=== PATIENT | male | born 1970 | race Caucasian/White ===

== ENCOUNTER 2018-10-27 11:12 | Emergency (ER) | payer MEDICARE, OTHER ==
[~2018-10-27] VITALS: Ht 182.9 cm; Wt 90.7 kg
[2018-10-27 11:45] LABS: BASOPHILS ABSOLUTE AUTO 0.07 K/mm3 (0.00-0.23); BASOPHILS PERCENT AUTO 1 % (0-2); EOSINOPHILS PERCENT AUTO 4 % (0-6); IMMATURE GRAN PERCENT AUTO 0 % (0-1); LYMPHOCYTES ABSOLUTE AUTO 1.92 K/mm3 (0.84-5.20); LYMPHOCYTES PERCENT AUTO 35 % (21-46); MONOCYTES ABSOLUTE AUTO 0.46 K/mm3 (0.16-1.47); MONOCYTES PERCENT AUTO 8 % (4-13); Mean Corpuscular HGB 31.4 pg (26.0-34.0); Mean Corpuscular HGB Conc 30.3 g/dL (31.5-36.5); Mean Corpuscular Volume 104 fL (80-100); Mean Platelet Volume 9.9 fL (9.1-12.4); NEUTROPHILS ABSOLUTE AUTO 2.86 K/mm3 (1.96-9.15); NEUTROPHILS PERCENT AUTO 52 % (41-73); Platelet Count 228 K/mm3 (150-400); RDW Coefficient Variation 13.6 % (11.7-14.2); Red Blood Cell Count 3.18 M/mm3 (4.30-5.90); White Blood Cell Count 5.51 K/mm3 (4.00-11.30)
[2018-10-27 12:17] LABS: Alanine Aminotransfer (ALT/SGP 22 U/L (12-78); Albumin, Blood 3.8 g/dL (3.4-5.0); Albumin/Globulin Ratio 1.1 (0.8-1.8); Alk Phos 80 U/L (50-136); Anion Gap 7 mmol/L (6-16); Aspartate Aminotrans (AST/SGOT 19 U/L (12-37); Bilirubin, Total 0.7 mg/dL (0.1-1.0); Blood Urea Nitrogen 20 mg/dL (8-24); Bun/Creatinine Ratio 13.2 (12.0-20.0); CO2, Blood 22 mmol/L (21-32); Calcium, Blood 8.8 mg/dL (8.5-10.1); Chloride, Blood 107 mmol/L (98-108); Creatinine, Blood 1.51 mg/dL (0.60-1.20); Globulin, Blood 3.6 g/dL (2.2-4.0); Glomerular Filtration Rate 52 (60-); Glucose, Blood 91 mg/dL (70-99); Potassium, Blood 4.5 mmol/L (3.5-5.5); Sodium, Blood 136 mmol/L (136-145); Total Protein, Blood 7.4 g/dL (6.4-8.2); Troponin I <0.015 ng/mL (0.000-0.040)
[2018-10-27] MEDS ORDERED: THIA100I PO (12:17)
[2018-10-27] MEDS ORDERED: HYDCHL25 PO (12:17)
[2018-10-27] MEDS ORDERED: GABA600 PO (12:18)
[2018-10-27] MEDS ORDERED: CYCL10 PO (12:18)
[2018-10-27] MEDS ORDERED: LISI5 PO (12:18)
[2018-10-27] MEDS ORDERED: CLON.2 PO (12:18)
== END 2018-10-27 14:21 | disposition home or self-care (01) ==
LOC: ER 11:12
PROVIDERS: Physician Assistant
DX: I12.9 Hypertensive chronic kidney disease with stage 1 through stage 4 chronic kidney disease, or unspecified chronic kidney disease (principal); N18.9 Chronic kidney disease, unspecified; R51 Headache; Z79.899 Other long term (current) drug therapy
CPT/HCPCS: 71046; 80053; 84484; 85025; 93005; 93010; 99284-25

== ENCOUNTER 2019-10-09 08:41 | Emergency (ER) | payer MEDICARE, OTHER ==
[~2019-10-09] VITALS: Ht 182.9 cm; Wt 83.9 kg
[~2019-10-09 08:41] MED LIST: ACETAMINOPHEN500 MG PO; CLON.2 PO; CYCL10 PO; GABA600 PO; HYDCHL25 PO; HYDHCL25 PO; LISI20 PO; LISI5 PO; METPRE4DP PO; Norco 5-325 Ta1 EACH PO; THIA100I PO
[2019-10-09] MEDS ORDERED: IBUP800 PO (10:25)
[2019-10-09] MEDS ORDERED: Norco 10-325 T1 EACH PO (10:25)
== END 2019-10-09 11:11 | disposition home or self-care (01) ==
LOC: ER 08:41
DX: S42.211A Unspecified displaced fracture of surgical neck of right humerus, initial encounter for closed fracture (principal); S42.201A Unspecified fracture of upper end of right humerus, initial encounter for closed fracture; S00.33XA Contusion of nose, initial encounter; S00.12XA Contusion of left eyelid and periocular area, initial encounter; S00.11XA Contusion of right eyelid and periocular area, initial encounter; I10 Essential (primary) hypertension; Z79.899 Other long term (current) drug therapy
CPT/HCPCS: 29105; 70160; 73030; 96374-59; 96375-59; 99284-25; J1885; J2405; J3010

== ENCOUNTER → 2020-01-18 | Outpatient (CLI) | payer MEDICARE, OTHER ==
[~2020-01-18] MED LIST changes: +IBUP800 PO; +Norco 10-325 T1 EACH PO
[2020-01-18 11:59] LABS: PSA, %Free 9.1 %; PSA, Free 0.227 ng/mL
== END | disposition home or self-care (01) ==
LOC: LAB EV 08:45 → LAB SHORT 08:45
PROVIDERS: Physician Assistant Medical
DX: R35.1 Nocturia (principal)
CPT/HCPCS: 84153; 84154

== ENCOUNTER 2020-06-01 12:10 | Inpatient (IN) | payer MEDICARE, OTHER ==
[~2020-06-01] VITALS: Ht 182.9 cm; Wt 70.6 kg
[2020-06-01 12:41] LABS: BASOPHILS ABSOLUTE AUTO 0.09 K/mm3 (0.00-0.23); BASOPHILS PERCENT AUTO 1 % (0-2); EOSINOPHILS ABSOLUTE AUTO 0.12 K/mm3 (0.00-0.68); EOSINOPHILS PERCENT AUTO 1 % (0-6); Hematocrit 40.1 % (37.0-53.0); Hemoglobin 12.9 g/dL (13.5-17.5); IMMATURE GRAN ABSOLUTE AUTO 0.02 K/mm3 (0.00-0.10); IMMATURE GRAN PERCENT AUTO 0 % (0-1); LYMPHOCYTES ABSOLUTE AUTO 1.34 K/mm3 (0.84-5.20); LYMPHOCYTES PERCENT AUTO 16 % (21-46); MONOCYTES ABSOLUTE AUTO 0.56 K/mm3 (0.16-1.47); MONOCYTES PERCENT AUTO 7 % (4-13); Mean Corpuscular HGB 31.2 pg (26.0-34.0); Mean Corpuscular HGB Conc 32.2 g/dL (31.5-36.5); Mean Corpuscular Volume 97 fL (80-100); Mean Platelet Volume 10.4 fL (9.1-12.4); NEUTROPHILS ABSOLUTE AUTO 6.25 K/mm3 (1.96-9.15); NEUTROPHILS PERCENT AUTO 75 % (41-73); Platelet Count 303 K/mm3 (150-400); RDW Coefficient Variation 12.4 % (11.7-14.2); RDW Standard Deviation 44.5 fL (35.1-46.3); Red Blood Cell Count 4.14 M/mm3 (4.30-5.90); White Blood Cell Count 8.38 K/mm3 (4.00-11.30)
[2020-06-01 13:00] LABS: Calcium, Ionized (POC) 1.14 mmol/L (1.10-1.46); Chloride (POC) 102 mmol/L (98-108); Creatinine (POC) 1.5 mg/dL (0.8-1.3); Glucose (ISTAT POC) 90 mg/dL (70-99); Hemoglobin (POC) 12.9 g/dL (13.5-17.5); Sodium (POC) 139 mmol/L (135-148); Total CO2 (POC) 23 mmol/L (21-32)
[2020-06-01 13:00] LABS: Alanine Aminotransfer (ALT/SGP 32 U/L (12-78); Albumin, Blood 3.8 g/dL (3.4-5.0); Albumin/Globulin Ratio 1.2 (0.8-1.8); Alk Phos 85 U/L (50-136); Anion Gap 7 mmol/L (6-16); Aspartate Aminotrans (AST/SGOT 28 U/L (12-37); Bilirubin, Total 0.6 mg/dL (0.1-1.0); Blood Urea Nitrogen 13 mg/dL (8-24); CO2, Blood 24 mmol/L (21-32); Calcium, Blood 8.9 mg/dL (8.5-10.1); Chloride, Blood 107 mmol/L (98-108); Creatinine, Blood 1.18 mg/dL (0.60-1.20); Ethanol (Alcohol), Blood, Med 118 mg/dL; Globulin, Blood 3.3 g/dL (2.2-4.0); Glomerular Filtration Rate >60 (60-); Glucose, Blood 91 mg/dL (70-99); Potassium, Blood 4.3 mmol/L (3.5-5.5); Sodium, Blood 138 mmol/L (136-145); Total Protein, Blood 7.1 g/dL (6.4-8.2)
[2020-06-01 13:16] LABS: International Normalized Ratio 0.94; Prothrombin Time Results 10.1 Sec (9.7-11.5)
--- NOTE | 2020-06-01 16:08 | NUR ---
ADMISSION: REPORT RECEIVED FROM ED RN. PT TO ROOM AT ABOUT 1505. UPON ASSESSMENT PT IS A/O, C/O PAIN AT BACK AND R SIDE OF CHEST. REPORT PAINFUL TO TALK/BREATHE. VSS, PT SPO2 98% ON RA, PT SPLINTING R SIDE OF CHEST AND BREATHING IS SHALLOW, RR WNL. UPON FUTHER ASSESSMENT THERE IS A PUCTURE SITE AT PT R BACK. WHEN PT BREATHES OR SPEAKS THE AREA SOURROUNDING THE PUNCTURE SITE BULDGES. THERE IS CREPTIUS AT PT'S R LATERAL, POSTERIOR, AND ANTERIOR RIBS. ALINING INSPECTOR LIZANDRO CALLED INTO ROOM TO ASSESS PT AT THIS TIME. DR. YAO MADE AWARE OF MY ASSESSMENT OF PT'S CHEST ASWELL DR. VALENCIA. DR. YAO IN ROOM AT ABOUT 1520 TO ASSESS PT STATUS. STAT CHEST XRAY ORDERED BY DR. VALENCIA. PT IS STABLE AT THIS TIME. CONTINUIOUS BI OX IN PLACE. CHEST X RAY TO BE TAKEN NOW. REPORT PASSED TO JOSE BONE.
--- NOTE | 2020-06-01 16:10 | NUR ---
assumed pt care called imaging re eta of cxr
--- NOTE | 2020-06-01 16:42 | NUR ---
NS BOLUS INFUSING AND THEN LR TO GO AT 150ML
--- NOTE | 2020-06-01 19:00 | NUR ---
PT OOB AMB TOWARDS PCU STATED HE CANNOT BREATH AND WAS GOING TO THE ER "my lung is filling up" TALKED WITH PT RE ALETHEA AND HOW IT MAY FEEL PT RETURNED TO HIS ROOM VIA WC PT PLACED ON 2 L NC AND NOTIFIED DR VALENCIA OF PT'S INC SOB SYMPTOMS EARLIER DR VALENCIA OUT TO SEE PT AND REPEAT XRAY DONE
--- NOTE | 2020-06-01 19:22 | NUR ---
CHEST TUBE PROCEDURE PT ARRIVED TO ICU 1 FOR CHEST TUBE INSERTION AND PROCEDURAL SEDATION. DR. VALENCIA AT BEDSIDE. PT IS ON 3L NC. MONITOR SHOWS NSR, RATE 80s. BP STABLE. VERSED 4MG IV TOTAL AND FENTANYL 125MCG IV TOTAL GIVEN FOR PROCEDURAL SEDATION. PT TOLERATED PROCEDURE WELL. LEFT LATERAL CHEST TUBE PLACED- TO WATER SEAL AT THIS TIME WITH SMALL AIR LEAK NOTED. CHEST XRAY DONE PER ORDER.
--- NOTE | 2020-06-01 21:02 | NUR ---
TRANSFER TRANSFERRED BACK TO SURGICAL FLOOR AT THIS TIME. O2 AT 3L NC. PT ROUSES EASILY AND IS TOLERATING ICE CHIPS. FREQUENTLY ASKS FOR FOOD. VSS. LEFT CHEST TUBE TO WATER SEAL AND IS TO BE PLACED TO 20CM SUCTION ONCE IN ROOM. JOSE PA IS AWARE.
--- NOTE | 2020-06-01 21:06 | NUR ---
PT BACK TO ROOM POST CT PLACEMENT. DROWSEY UPON RETURN. 3L VIA NC. LUNG SOUNDS DIMINISHED T/O. CONT PULSE OXIMETRY IN PLACE. CREPITUS NOTED MEDIAL + LATERAL TO CT PLACEMENT. BED ALARM ON FOR SAFETY. CALL LIGHT WITHIN REACH.
[2020-06-02 00:17] LABS: U Amphetamine Screen Not Detected; U Barbituate Screen Not Detected; U Benzodiazapine Screen Not Detected; U Buprenorphine Screen Not Detected; U Cannabinoids Screen DETECTED; U Cocaine Screen Not Detected; U Methadone Screen Not Detected; U Methamphetamine Screen Not Detected; U Opiates Screen Not Detected; U Oxycodone Screen Not Detected; U Phencyclidine Screen Not Detected; U Propoxyphene Screen Not Detected
[2020-06-02 03:03] LABS: Source, Urine Clean Catch
[2020-06-02 03:07] LABS: Bilirubin, Urine Neg (Neg); Blood, Urine 1+ (Neg); Glucose Qualitative, Urine 1+ (Neg); Ketones, Urine 2+ (Neg); Leukocyte Esterase, Urine Neg (Neg); Nitrite, Urine Neg (Neg); Protein, Urine 1+ (Neg); Specific Gravity, Urine 1.015 (1.003-1.022); Urobilinogen, Urine NORM (Normal)
[2020-06-02 03:12] LABS: Appearance, Urine Clear (Clear); Color, Urine Yellow (P-Yellow)
[2020-06-02 03:13] LABS: Bacteria Few /hpf; Red Blood Cells, Urine 0-2 /hpf (0-2); Spermatozoa Few /hpf; Squamous Epithelial Cells Not Seen /hpf (Few); White Blood Cells, Urine 0-2 /hpf (0-5)
--- NOTE | 2020-06-02 03:57 | NUR ---
SHIFT SUMMARY PT RESTING WELL THIS AM. AAOX4/ANXIOUS AT TIMES. DISCOMFORT AT TOLERABLE LEVEL SINCE BACK TO FLOOR POST CHEST TUBE PLACEMENT TO LEFT LATERAL CHEST. CREPITUS PERSISTS BOTH MEDIAL AND POSTERIOR OF CHEST TUBE, DECREASED FROM PREVIOUS SHIFT ASSESSMENT. LUNG SOUNDS DIMINISHED T/O. CHEST TUBE TO WALL SUCTION WITH MINIMAL DRAINAGE. 2L VIA NC. PT WITH GOOD APPETITE UPON ARIVAL BACK TO UNIT. CONT PULSE OXIMETRY IN PLACE. PT REQUESTING TO NOT BE DISTURBED THIS AM, WILL CONSOLIDATE CARE TO IMPROVE PT'S REST. PT CURRENTLY RESTING IN BED, CONT PULSE OXIMETRY IN PLACE + CALL LIGHT WITHIN REACH.
[2020-06-02 06:55] LABS: Hematocrit 38.5 % (37.0-53.0); Hemoglobin 12.4 g/dL (13.5-17.5); Mean Corpuscular HGB 31.2 pg (26.0-34.0); Mean Corpuscular HGB Conc 32.2 g/dL (31.5-36.5); Mean Corpuscular Volume 97 fL (80-100); Platelet Count 281 K/mm3 (150-400); RDW Coefficient Variation 12.8 % (11.7-14.2); RDW Standard Deviation 45.8 fL (35.1-46.3); Red Blood Cell Count 3.97 M/mm3 (4.30-5.90); White Blood Cell Count 8.02 K/mm3 (4.00-11.30)
[2020-06-02 07:14] LABS: Anion Gap 5 mmol/L (6-16); Blood Urea Nitrogen 20 mg/dL (8-24); Bun/Creatinine Ratio 21.1 (12.0-20.0); CO2, Blood 26 mmol/L (21-32); Calcium, Blood 8.4 mg/dL (8.5-10.1); Chloride, Blood 111 mmol/L (98-108); Creatinine, Blood 0.95 mg/dL (0.60-1.20); Glomerular Filtration Rate >60 (60-); Glucose, Blood 145 mg/dL (70-99); Sodium, Blood 142 mmol/L (136-145)
--- NOTE | 2020-06-02 07:50 | NUR ---
AT APROX 0700 THIS RN ENTERED PT ROOM PER PT REQUEST. PT AGGITATED, WANTS STAFF TO GO TO "[employer] AND BUY OYSTERS AND PROTEIN SHAKES" SO THAT HE CAN HEAL. RN OFFERED TO CALL MD FOR OMEGA 3 SUPPLEMENT AND PROTEIN SHAKES FROM DIETARY. PT INCREASED AGGITATION AND CUSSING-STATES THAT IS NOT GOOD ENOUGH. DEMANDS AGAIN THAT STAFF GO AND BUY HIM WHAT HE WANTS. EXPLAINED THAT STAFF IS UNABLE TO GO TO STORE AND MAKE PURCHASES FOR HIM. PT PUSHED TABLE AT THIS RN, ATTEMPTED TO GET OOB WITH CHEST TUBE TO SUCTION. 2ND RN IN ROOM. DR VALENCIA NOTIFIED, ORDERS FOR CIWAS Q4 AND ATIVAN AND LIBRIUM.
--- NOTE | 2020-06-02 08:13 | NUR ---
MORNING ASSESSMENT PT ANGRY, IRRITABLE, THROWING OBJECTS AT STAFF (TELE BOX), AND BEING VERBALLY ABUSIVE. SECURITY CALLED TO STANDBY WHILE NURSING STAFF PERFORMED A.M. ASSESSMENT AND MEDICATIONS. CHARGE NURSE ADMINISTERED IV ATIVAN PER [facility] PROTOCOL AND THIS RN ATTEMPTED TO GIVE PT LIBRIUM, BUT PT REFUSED. DR. YAO AWARE. NURSING STAFF CONTINUING TO OFFER SNACKS AND PROVIDING SUPPORT PRN. CHEST TUBE INTACT TO WALL SUCTION. CONT BIOX IN PLACE AND PT SATTING AT 95% ON ROOM AIR. IVF INFUSING PER ORDERS. PT USED THE URINAL. CALL LIGHT WITHIN REACH.
--- NOTE | 2020-06-02 08:58 | NUR ---
PT APPEARS TO BE SLEEPING AT THIS TIME. RESPIRATIONS EVEN AND UNLABORED. CONT BIOX IN PLACE AND O2 SATS STABLE ON ROOM AIR. BREAKFAST TRAY COLLECTED. TELE BOX RETURNED TO NATURAL SCIENCES MANAGER. CALL LIGHT WITHIN REACH. CHEST TUBE INTACT.
--- NOTE | 2020-06-02 10:10 | NUR ---
AT 1000 PT WAS TRANSFERED FROM SURGICAL FLOOR TO ICU 2. PT IS IN 4 POINT TAT RESTRAINTS. PT IS YELLING AND CUSSING AT STAFF. WAS AGGRESSIVE WITH SECURITY AND STAFF ON SURGICAL FLOOR. 4 MG OF IV ATIVAN GIVEN AND PRECEDEX ON THE WAY FROM PHARMACY. HAD TO LEAVE PT IN SURGICAL BED DUE TO RISK OF INJURY TO STAFF WHILE TRANSFERING. PT HAS CHEST TUBE TO L ANTERIOR CHEST CONNECTED TO PLEURAVAC. PT IS NOT SOB OR DYSPNEIC. WILL ALLOW PT TO CALM DOWN BEFORE THOROUGHLY ASSESSING. AFTER ATIVAN PT IS CALMING DOWN.
--- NOTE | 2020-06-02 10:13 | NUR ---
YANETH AGUILAR CALLED INTO PT ROOM AFTER YANETH AGUILAR ANNOUNCED. SECURITY, NURSING HYDRAULIC BOOM OPERATOR, AND NURSING STAFF PRESENT IN ROOM AND RESTRAINING PT DOWN. STRONG CUFFS APPLIED TO ALL EXTREMITIES PT WAS BECOMING PHYSICALLY ABUSIVE TO STAFF AND A HARM TO HIMSELF PT WAS PULLING AT CHEST TUBE AND IV LINE. CLICKER OPERATOR ADMINISTERED IV ATIVAN PER ORDERS. THIS RN NOTIFIED DR. YAO AND TELEPHONE ORDER TO TRANSFER TO ICU AND START PRECEDEX WAS ORDERED. PT TRANSFERRED TO ICU AND THIS RN GAVE REPORT TO ICU NURSE.
--- NOTE | 2020-06-02 12:00 | NUR ---
PT SEDATED WITH PRECEDEX. WILL AROUSE TO VOICE BUT DOES NOT OPEN EYE'S AND GOES BACK TO SLEEP. UNABLE TO DO CIWA SCORE NOW THAT PT IS SEDATED. PT IS POORLY KEPT AND STATED EARLIER THAT HE IS HOMELESS. PT HAS CHEST TUBE TO L ANTERIOR CHEST. HAS CREPITUS FROM SITE UP TO NECK AROUND JUGULAR. SOME CREPITUS TO TOP OF SHOULDER AND DOWN TO L OF STERNUM. CHEST TUBE TO PLEURAVAC TO SUCTION. NO SIGN OF DISTRESS.
--- NOTE | 2020-06-02 18:29 | NUR ---
SUMMARY PT IS RESTING ON PRECEDEX NOW. HAVE GIVEN ATIVAN PRN FOR AGITATION. UNABLE TO GET CIWA SCORE DUE TO SEDATION. PT WOKE UP TONIGHT RN WAS ADJUSTING RESTRAINT AND DID TRY TO BITE RN. PT HAS GARBLED SPEECH AND CONVERSATION DOES NOT MAKE SENSE. CHEST TUBE TO L ANTERIOR CHEST PUTTING OUT SMALL AMT OF RED FLUID IN PLEURAVAC. PT DENIED DYSPNEA OR SOB. SPO2 GREATER THAN 90% ON RA ALL DAY. HAS CREPITUS TO L CHEST UP TO NECK JUST BELOW EAR, AND TO MID RIBS/FLANK AREA. ONLY PEA SIZED ABRAISION TO L BACK WHERE PT WAS HIT WITH SOFY DIXON PRIOR TO ADMIT. REMAINS IN TAT X4 DUE TO UNPREDICTABILITY. NO SIGN OF DISTRESS.
--- NOTE | 2020-06-02 20:00 | NUR ---
PRECEDEX INFUSING. SEE FLOW SHEET FOR TITRATION AND RATES. UNABLE TO COMPLETE CIWA ASSESSMENT DUE TO SEDATION.
--- NOTE | 2020-06-02 20:40 | NUR ---
ASSUMED CARE AT 1900 PT SLEEPING IN BED. PT AROUSES TO VERBAL STIMULI. SPEECH IS GARBLED, UNABLE TO UNDERSTAND PT. NOT FOLLOWING DIRECTIONS. PT IS ON RA WITH O2 >95%. MONITOR SHOWS SR, HR 55-60'S. PT HYPERTENSIVE, WILL CONTINUE TO MONITOR. PRN MEDICATIONS AVAILABLE FOR PAIN AND HTN. CHEST TUBE IN PLACE TO LT ANTERIOR CHEST. DRAINING TO PLEURVAC TO WALL SUCTION. CEPITOS PRESENT T/O LT CHEST UP TO LT SIDE OF NECK CLOSE TO EAR, ALSO WRAPING AROUND TO LT POSTERIOR COSTAL AREA. NO AIR LEAK NOTED IN PLEURVAC. ATTEMPTED ORAL CARE, PT BIT DOWN ON SWAB AND WOULD NOT LET GO. WAS ABLE TO REMOVE SWAB AND STILL IN TACT. PLAQUE NOTED ON TEETH, UNABLE TO ASSESS ORAL CAVITY AT THIS TIME. PT PASSING GAS. INCONTINENT OF URINE. PT VERY AGITATED WITH NURSING CARE. PLAN TO ATTEMPT CONDOM CATH THIS SHIFT. PT FISHMAN. OCCASIONALLY ATTEMPTS SITTING UP IN BED. PT BEGAN SITTING UP IN BED AND SOUNDED LIKE HE WAS YELLING OUT "PAIN". ATTEMPTED TO FURTHER ASSESS PAIN, PT BEGAN CURSING AT THIS RN AND NOT COOPERATIVE WITH ASSESSMENT. PT MEDICATED WITH FENTYNAL. CURRENTLY RESTING COMFORTABLY.
--- NOTE | 2020-06-03 00:55 | NUR ---
AGITATION PT WAS YELLING OUT FROM ROOM REQUESTING WATER. ATTEMPTED TO ASSIST PT WITH A SIP OF WATER. PT TOOK CUP OF WATER AND THREW IT ON THE FLOOR AND THEN STARTED CURSING AT STAFF AND THRASHING AROUND IN BED. PRN ATIVAN PROVIDED. PT NOW RESTING QUIETLY IN BED.
--- NOTE | 2020-06-03 02:42 | NUR ---
AGITATION PT YELLING OUT FROM ROOM. TELL THIS RN THAT HE "LEFT A BAG OF WEED IN THIS BED" AND IS TRYING TO FIND IT. ASSURED PT THE ROOM WAS CHECKED EARLIER AND THAT A "BAG OF WEED" WAS NOT FOUND. PT THEN YELLS "THEN WHAT THE FUCK ARE YOU DOING HERE! GET OUT!" BILATERAL WRIST RESTRAINTS REMAIN IN PLACE.
[2020-06-03 03:32] LABS: Hemoglobin 13.1 g/dL (13.5-17.5); Mean Corpuscular HGB Conc 32.8 g/dL (31.5-36.5); Mean Corpuscular Volume 95 fL (80-100); Mean Platelet Volume 10.7 fL (9.1-12.4); Platelet Count 261 K/mm3 (150-400); RDW Coefficient Variation 12.2 % (11.7-14.2); RDW Standard Deviation 42.9 fL (35.1-46.3); Red Blood Cell Count 4.23 M/mm3 (4.30-5.90); White Blood Cell Count 8.49 K/mm3 (4.00-11.30)
[2020-06-03 03:57] LABS: Anion Gap 4 mmol/L (6-16); Blood Urea Nitrogen 14 mg/dL (8-24); Bun/Creatinine Ratio 16.2 (12.0-20.0); CO2, Blood 27 mmol/L (21-32); Calcium, Blood 8.7 mg/dL (8.5-10.1); Chloride, Blood 109 mmol/L (98-108); Creatinine, Blood 0.87 mg/dL (0.60-1.20); Glomerular Filtration Rate >60 (60-); Glucose, Blood 125 mg/dL (70-99); Magnesium, Blood 1.9 mg/dL (1.6-2.4); Potassium, Blood 3.9 mmol/L (3.5-5.5); Sodium, Blood 140 mmol/L (136-145)
--- NOTE | 2020-06-03 06:05 | NUR ---
AGITATION PT SITING UP WITH LEGS HANGING OFF BED AND YELLING OUT IN ROOM. PT CURSING AT RN'S AND CALLING NAMES. PT NOT REDIRECTABLE. ATTEMPTED TO ASSESS FOR NEEDS BUT PT CONTINUED TO CURSE AT STAFF. PRN ATIVAN GIVEN. PRECEDEX INCREASED.
--- NOTE | 2020-06-03 06:14 | NUR ---
END OF SHIFT SUMMARY PT LABILE MOOD T/O SHIFT. RESTS T/O NIGHT AND BECOMES INCREASING AGITATED WHILE AWAKE. SEE PREVIOUS NOTES. SPEECH IS CLEARER THAN BEGINING OF SHIFT. STILL GARBLED AND SLURED BUT UNDERSTANDABLE. CHEST TUBE IN PLACE AND ON SUCTION. NO LEAKS PRESENT AND ABOUT 50ML OF DRAINAGE THIS SHIFT. RA O2 SATS >94%. PT IN NSR WITH HR 60-90'S. SBP 152-182. PT IS ABLE TO PASS GAS. CONDOM CATH CONTINUE TO BE IN PLACE. PRECEDEX INFUSING. SEE FLOW SHEET. WILL REPORT TO AM RN WHEN AVAILABLE.
--- NOTE | 2020-06-03 10:01 | NUR ---
PT SEDATED WITH PRECEDEX AT 1.4 MCG/KG/MIN. PT WILL STILL WAKE UP AND START YELLING, PULLING AGAINST RESTRAINTS, AND WILL PULL ANY LINE THAT HE CAN GET TO. DOES NOT ANSWER QUESTIONS. GARBLED SPEECH. CHEST TUBE TO L ANTERIOR CHEST CONNECTED TO PLEURAVAC WITH WALL SUCTION. CREPITUS HAS NOT WORSENED. CREPITUS TO L CHEST TO MIDLINE RIBS AND UP INTO NECK JUST BELOW EAR. CXR DONE. ON RA SPO2 GREATER THAN 90%. NO SIGN OF ACUTE DISTRESS.
--- NOTE | 2020-06-03 10:30 | NUR ---
DR. LUO BY TO SEE PT. INFORMED HER OF HTN AND UPDATED. ALSO ASKED ABOUT BANANA BAG. SHE WILL BE PUTTING ORDERS IN.
--- NOTE | 2020-06-03 17:50 | NUR ---
SUMMARY PT HAS BEEN DIFFICULT TO KEEP CALM ALL DAY. HAS BEEN ON PRECEDEX GTT AND RECEIVING ATIVAN IVP Q 2HR. ALSO GOT A DOSE OF IM ZYPREXA. EVEN WITH THIS SEDATION HE WAS SITTING UP IN BED PULLING AT ANY TUBE OR LINE HE COULD REACH. PT WAS CUSSING AND YELLING. HAD CALLED DR. LUO TO UPDATE HER AND LET HER KNOW HR WAS IN THE 40'S BUT HYPERTENSIVE ALSO. NEW ORDERS RECEIVED FOR PHENOBARBITAL TO TRY TO GET PRECEDEX WEANED DOWN. ONCE ORDER WAS OBTAINED PT FELL TO SLEEP AND DID NOT GET PHENOBARBITAL DOSE. TITRATING PRECEDEX DOWN NOW. VASOTEC GIVEN FOR HTN. WAITING FOR HR TO COME UP BEFORE GIVING LABETOLOL. CHEST TUBE STILL PUTTING OUT RED FLUID. DR. VALENCIA CAME IN AND ASSESSED CHEST TUBE AND STATES IT MIGHT BE ABLE TO COME OUT TOMORROW. BANANA BAG STARTED TODAY. PT WAS ABLE TO TAKE SMALL SIPS OF WATER BUT DID NOT TRY PILLS DUE TO DIFFICULTY FOLLOWING COMMANDS. REMAINS IN TAT X4 DUE TO UNPREDICTABILITY AND PT WILL TRY TO TAKE LINES OUT WITH TOES.
--- NOTE | 2020-06-03 19:58 | NUR ---
SHIFT ASSESSMENT REPORT RECV'D FROM JOSE TUCKER. PT WAS YELLING AND CUSSING AT STAFF WE WERE INTRODUCED. IN 4 POINT RESTRAINTS DUE TO VIOLENT BEHAVIOR AND RISK OF PULLING TUBES. MILDLY REDIRECTABLE BUT CONTINUED TO YELL OUT ABOUT BEING POISONED AND NEEDING THESE TUBES REMOVED. PRECEDEX CONTINUES @ 0.5. INTERMITTENT OUTBURSTS CONTINUE. PT A&O X 3. LS CLEAR ON THE RIGHT, DIMINISHED ON THE LEFT c PALPABLE CREPITUS AROUND THE CHEST TUBE INSERTION SITE. ON RA c O2 SATS >95%. CHEST TUBE TO PLEURAL VAC, NO AIR LEAK SEEN c RED FLUID DRAINING. ATTENDS IN PLACE DUE TO OCCASIONAL INCONTINENCE.
--- NOTE | 2020-06-04 06:20 | NUR ---
SHIFT SUMMARY PT REMAINS IN 4 POINT RESTRAINTS DUE TO UNPREDICTABLE BEHAVIOR AND ENDANGERING HIS CHEST TUBE. PT WOULD HAVE CALM, COOPERATIVE MOMENTS T/O THE NIGHT, FOLLOWED BY RANDOM OUTBURSTS, SEVERE AGITATION, WHILE REQUESTING CIGARETTES, OYSTERS, AND MUSCLE MILK. MEDICATED c PRESCRIBED MEDICATIONS WITH LITTLE RELIEF. PRECEDEX GTT TITRATED UP TO 0.9MCG/KG/HR. LS REMAIN UNCHANGED.150ML FLUID FROM CHEST TUBE THIS SHIFT. CONDOM CATHETER PLACED AFTER INCONTINENT EPISODE.
--- NOTE | 2020-06-04 08:11 | NUR ---
PT EASILY AROUSING AND FISHMAN DISPITE RESTRAINTS X4 TO PROTECT PT AND CHEST TUBE. PT WILL MOAN AND THEN RETURN TO SLEEP. MINOR R SHOULDER CREPITIS IS NOTED. CHEST TUBE IS TO GENTLE WALL SX BUBBLING AND 20 CM OF WATER SEAL SUCTION. SEROSANG. DRAINANGE IS NOTED. IV SITES X2 PATENT. CONDOM CATH IS INTACT. RESTRAINT CIRC IS NOTED. VSS.
--- NOTE | 2020-06-04 09:44 | NUR ---
0910 CHEST TUBE D/C PER DR VALENCIA. REMOVED W/O PT DISTRESS PT WAS PREMEDICATED WITH FENT. IVP. MINIMAL TO NO AIR LEAK AND SITE DR REQUESTED SITE TO REMAIN OPEN TO AIR.
--- NOTE | 2020-06-04 11:33 | NUR ---
SEVERAL ATTEMPTS HAVE BEEN MADE TITRATE DOWN THE PRECEDEX. PHENOBARBATOL HAS JUST BEEN GIVEN. PRECEDEX DOWN TO 0.7 MCG AND WILL FOLLOW. PT WAS RAMPING UP WITH VERBAL ABUSE AND YELLING OUT PRIOR TO THIS. WILL FOLLOW.
--- NOTE | 2020-06-04 17:08 | NUR ---
ORAL CARE WAS COMPLETED ON PT AND PT WAS ABLE TO RINSE MOUTH AND LATER SWALLOW IN A COOPERATIVE MANNER. PT REQUESTING FOOD, SOFT DIET OBTAINED. PT IS FALLING TO SLEEP WHEN LEFT ALONE AND WILL ATTEMPT AGAIN TO TITRATE PRECEDEX GTT DOWN AND CONT. PHENABARBETOL PER DR REQUEST. VS STABLE AND NO PRNS FOR BP. CLINIMIX GTT AT 80ML AFTER MVI BANANNA BAG COMPLETE. IS ICU FLOWSHEET FOR PRECEDEX TITRATION.
--- NOTE | 2020-06-04 17:13 | NUR ---
PT CONT TO HAVE CONDOM CATH ON WITH GOOD OUTPUT.
--- NOTE | 2020-06-04 17:38 | NUR ---
I/O COLLECTED, PT REPOSITIONED, AWAKENED AND VERBAL AND THEN RETURNED TO SLEEP WHEN LEFT ALONE FOR 2-3 MINUTES.
--- NOTE | 2020-06-04 18:29 | NUR ---
PT AGAIN AWAKENED ENOUGH TO TAKE PO, WHICH HE DID W/O ANY DIFFICULTY OR DISTRESS. PT REMAINED RESTRAINED HE BECAME VERY VERBAL AND THREATENING TO HARM STAFF IF HIS DEMANDS TO GET OUT AND "GO SEE HIS DOG" WERE NOT MEET. PO INTAKE WAS COMPLETED, PHENABARBETOL GIVEN AND PRECEDX GTT LEFT AT 0.5 MCG FOR NOW. WILL REPORT AND FOLLOW PT STATUS. POST FEED ORAL CARE REPEATED.
--- NOTE | 2020-06-04 19:15 | NUR ---
SHIFT ASSESSMENT PT A&OX3. HAVING INTERMITTENT OUTBURSTS, CONCERNED ABOUT GOING HOME TO FIND HIS DOG. ATTEMPTED REDIRECTION, PT QUITE ADAMANT ABOUT LEAVING TO FIND HIS DOG. NO C/O OF RIB PAIN OR SHOB. LSCTA, O2 SATS >95% ON RA. CREPITUS REMAINS T/O L CHEST WALL RADIATING TO THE BACK. CHEST TUBE INCISION SITE ON THE L CHEST WALL IS C/D/I. SUTURES IN PLACE, FRESH WORK INSPECTOR. LFA IV INFILTRATED, IV DC'D, WILL OBTAIN SECOND IV. CONDOM CATH IN PLACE DRAINING CLEAR, YELLOW URINE. RESTRAINTS REMAIN IN PLACE TO PROTECT PTS LINES AND CORDS.
--- NOTE | 2020-06-04 19:48 | NUR ---
PATIENT VERBALIZED CONCERN REGARDING HIS DOG. CALL PLACED TO NON EMERGENCY DISPATCH. NO MENTION OF A DOG IN THE POLICE REPORT.
[2020-06-05 04:06] LABS: Anion Gap 5 mmol/L (6-16); Blood Urea Nitrogen 21 mg/dL (8-24); Bun/Creatinine Ratio 19.6 (12.0-20.0); CO2, Blood 29 mmol/L (21-32); Calcium, Blood 9.1 mg/dL (8.5-10.1); Chloride, Blood 103 mmol/L (98-108); Creatinine, Blood 1.07 mg/dL (0.60-1.20); Glomerular Filtration Rate >60 (60-); Glucose, Blood 82 mg/dL (70-99); Magnesium, Blood 2.1 mg/dL (1.6-2.4); Phosphorus, Blood 4.7 mg/dL (2.5-4.9); Sodium, Blood 137 mmol/L (136-145); Triglycerides 80 mg/dL (30-160)
--- NOTE | 2020-06-05 05:38 | NUR ---
SHIFT SUMMARY PT A&OX3. REMAINS ADAMANT ON GOING HOME TODAY, UNPREDICTABLE YET REDIRECTABLE, APPEARS TO BE AT HIS BASELINE. LS REMAIN UNCHANGED. PT O2 SATS >95% ON RA. PRECEDEX SLOWLY TITRATED DOWN T/O THE MORNING AND DC'D. RESTRAINTS REMOVED AROUND 0300 SO PT COULD HAVE A BOWEL MOVEMENT. PT REMAINED OUT OF HIS RESTRAINTS AND ASSISTED TO A BEDSIDE CHAIR c BED ALARM, COOPERATIVE AND NOT PULLING AT HIS LINES AT THIS TIME. PT TOLERATED FOOD, WATER, AND DECAF COFFEE THIS AM. MEDICATED THROUGH THE NIGHT c PHENOBARBITAL. WILL CONTINUE TO MONITOR CLOSELY. TAB ALARM IN PLACE.
--- NOTE | 2020-06-05 06:32 | NUR ---
PT GETTING OUT OF HIS CHAIR TO PUT ON HIS PANTS. STATES "IT'S COLD, I NEED MY PANTS". PT WAS NOT REDIRECTABLE, ASSISTED c PANTS AND HELPED BACK TO THE CHAIR. BLANKET, SNACKS, AND DECAF COFFEE PROVIDED. WILL CONTINUE TO MONITOR CLOSELY.
--- NOTE | 2020-06-05 07:40 | NUR ---
ASSUMED CARE RECEIVED REPORT FROM JOSE AVERY. PT IS ALERT AND ORIENTED TO SELF, SITUATION, AND SURROUNDINGS. HE IS TALKING/YELLING AT TV (OR TO SELF?). ADAMENT ABOUT LEAVING, HE HAS DECIDED TO STAY UNTIL HE SEES THE DOCTOR. PT IS VERY TALKATIVE, AND MAKING SEXUAL JOKES. PT IS IN SINUS TACHYCARDIA, RATE 110-120. BP STABLE. BED LOW AND LOCKED. CALL LIGHT WITHIN REACH. HE IS SITTING IN CHAIR WATCHING TV.
--- NOTE | 2020-06-05 08:20 | NUR ---
UPDATE PT REFUSING CARE, AND NOT LISTENING TO STAFF. CALLING OUT TO STAFF THEY WALK BY. HE CALLED FOR OUR TRANSPORT ENGINEER, SCOTT, BY SAYING "HEY WOMAN", "BITCH!", AND EVEN "HEY SLUT". HE IS LABILE - AND CAN BE ANGRY AT TIMES, BUT HE IS MAINLY EUPHORIC, FEELING "RUSHED", FROM THE PHENOBARBITAL GIVEN EARLIER. HE IS VERY TALKATIVE, COMICAL, GIGGLY, AND RUDE - D/T INAPPROPRIATENESS, MAINLY TO FEMALE STAFF. HE ASKED FOR HELP TO SEE A DOCTOR IN THE OUTPATIENT SETTING. I GAVE HIM A NEW PATIENT PACKET FOR [facility], AND GAVE HIM STEP BY STEP INSTRUCTIONS ON WHAT TO DO SO THAT HE CAN START SEEING A PROVIDER.
== END 2020-06-05 08:57 | disposition home or self-care (01) | DRG 200 ==
LOC: ER 12:10 → SURS 12:11 → ICUE 06-02 10:03
PROVIDERS: Internal Medicine; Physician Assistant; ADMIT Internal Medicine
PROC: 0W9B30Z Drainage of Left Pleural Cavity with Drainage Device, Percutaneous Approach (ICD-10-PCS; principal; 2020-06-05)
DX: S27.0XXA Traumatic pneumothorax, initial encounter (principal); S22.42XA Multiple fractures of ribs, left side, initial encounter for closed fracture; F10.230 Alcohol dependence with withdrawal, uncomplicated; Y29.XXXA Contact with blunt object, undetermined intent, initial encounter; I10 Essential (primary) hypertension; R45.1 Restlessness and agitation; T79.7XXA Traumatic subcutaneous emphysema, initial encounter; F17.210 Nicotine dependence, cigarettes, uncomplicated; Y08.89XA Assault by other specified means, initial encounter
CPT/HCPCS: 36415; 71045; 71260; 74177; 80047; 80048; 80053; 81001; 82550; 82947; 83605; 83690; 83735; 84100; 84478; 85014; 85025; 85027; 85610; 90471; 90714; 93005; 93010; 94762; 96361; 96374; 96375; 96376; 99285-25; G0378; G0480; J2060; J2250; J2560; J3010; J3411; J3475; J7030; J7042; J7120; Q9967

== ENCOUNTER 2020-08-26 08:33 | Emergency (ER) | payer MEDICARE, OTHER ==
[~2020-08-26] VITALS: Ht 175.3 cm; Wt 77.1 kg
[2020-08-26] MEDS ORDERED: KEFLEX500 MG PO (10:06)
[2020-08-26] MEDS ORDERED: OXYACE7.5T PO (10:06)
== END 2020-08-26 10:06 | disposition home or self-care (01) ==
LOC: ER 08:33
DX: S68.613A Complete traumatic transphalangeal amputation of left middle finger, initial encounter (principal); S68.615A Complete traumatic transphalangeal amputation of left ring finger, initial encounter; I10 Essential (primary) hypertension; W23.0XXA Caught, crushed, jammed, or pinched between moving objects, initial encounter
CPT/HCPCS: 73120; 96372-59; 99283-25

== ENCOUNTER 2022-09-24 09:19 | Emergency (ER) | payer MEDICARE, OTHER ==
[~2022-09-24] VITALS: Ht 182.9 cm; Wt 113.4 kg
[~2022-09-24 09:19] MED LIST changes: +KEFLEX500 MG PO; +OXYACE7.5T PO
[2022-09-24 09:44] LABS: BASOPHILS ABSOLUTE AUTO 0.05 K/mm3 (0.00-0.23); BASOPHILS PERCENT AUTO 1 % (0-2); EOSINOPHILS ABSOLUTE AUTO 0.11 K/mm3 (0.00-0.68); EOSINOPHILS PERCENT AUTO 2 % (0-6); Hematocrit 40.2 % (37.0-53.0); Hemoglobin 13.7 g/dL (13.5-17.5); IMMATURE GRAN ABSOLUTE AUTO 0.02 K/mm3 (0.00-0.10); IMMATURE GRAN PERCENT AUTO 0 % (0-1); LYMPHOCYTES ABSOLUTE AUTO 1.93 K/mm3 (0.84-5.20); LYMPHOCYTES PERCENT AUTO 28 % (21-46); MONOCYTES PERCENT AUTO 10 % (4-13); Mean Corpuscular HGB 31.2 pg (26.0-34.0); Mean Corpuscular HGB Conc 34.1 g/dL (31.5-36.5); Mean Corpuscular Volume 92 fL (80-100); Mean Platelet Volume 10.8 fL (9.1-12.4); NEUTROPHILS ABSOLUTE AUTO 4.21 K/mm3 (1.96-9.15); NEUTROPHILS PERCENT AUTO 60 % (41-73); Platelet Count 209 K/mm3 (150-400); RDW Coefficient Variation 13.5 % (11.7-14.2); RDW Standard Deviation 45.7 fL (35.1-46.3); Red Blood Cell Count 4.39 M/mm3 (4.30-5.90); White Blood Cell Count 7.02 K/mm3 (4.00-11.30)
[2022-09-24 11:39] LABS: Bun/Creatinine Ratio 6.3 (12.0-20.0); Calcium, Blood 8.3 mg/dL (8.5-10.1); Creatinine, Blood 1.27 mg/dL (0.60-1.20); Potassium, Blood 3.7 mmol/L (3.5-5.5)
== END 2022-09-24 11:05 | disposition home or self-care (01) ==
LOC: ER 09:19
PROVIDERS: Emergency Medicine
DX: S71.132A Puncture wound without foreign body, left thigh, initial encounter (principal); S09.90XA Unspecified injury of head, initial encounter; I10 Essential (primary) hypertension; X94.0XXA Assault by shotgun, initial encounter
CPT/HCPCS: 36415; 70450; 71045; 73706; 80048; 85025; 90714; J1885; Q9967

== ENCOUNTER 2023-01-10 17:14 | Emergency (ER) | payer OTHER ==
[~2023-01-10] VITALS: Ht 182.9 cm; Wt 90.7 kg
[2023-01-10 17:37] VITALS: BP 166/97
== END 2023-01-10 20:35 | disposition home or self-care (01) ==
LOC: ER 17:14
DX: M79.671 Pain in right foot (principal); I10 Essential (primary) hypertension
CPT/HCPCS: 73620; 99283-25

== ENCOUNTER 2023-02-20 12:21 | Emergency (ER) | payer OTHER ==
[~2023-02-20] VITALS: Ht 182.9 cm; Wt 98.4 kg
[2023-02-20 12:39] VITALS: BP 146/102
[2023-02-20 12:56] LABS: BASOPHILS ABSOLUTE AUTO 0.07 K/mm3 (0.00-0.23); BASOPHILS PERCENT AUTO 1 % (0-2); EOSINOPHILS ABSOLUTE AUTO 0.27 K/mm3 (0.00-0.68); EOSINOPHILS PERCENT AUTO 4 % (0-6); Hematocrit 46.4 % (37.0-53.0); Hemoglobin 15.7 g/dL (13.5-17.5); IMMATURE GRAN ABSOLUTE AUTO 0.01 K/mm3 (0.00-0.10); IMMATURE GRAN PERCENT AUTO 0 % (0-1); LYMPHOCYTES PERCENT AUTO 39 % (21-46); MONOCYTES ABSOLUTE AUTO 0.53 K/mm3 (0.16-1.47); MONOCYTES PERCENT AUTO 8 % (4-13); Mean Corpuscular HGB 30.5 pg (26.0-34.0); Mean Corpuscular HGB Conc 33.8 g/dL (31.5-36.5); Mean Corpuscular Volume 90 fL (80-100); Mean Platelet Volume 10.5 fL (9.1-12.4); NEUTROPHILS ABSOLUTE AUTO 3.11 K/mm3 (1.96-9.15); NEUTROPHILS PERCENT AUTO 48 % (41-73); Platelet Count 248 K/mm3 (150-400); RDW Coefficient Variation 13.4 % (11.7-14.2); Red Blood Cell Count 5.15 M/mm3 (4.30-5.90); White Blood Cell Count 6.49 K/mm3 (4.00-11.30)
[2023-02-20 13:02] LABS: Source, Urine Clean Catch
[2023-02-20 13:10] LABS: Appearance, Urine Clear (Clear); Bilirubin, Urine Neg (Neg); Blood, Urine Neg (Neg); Color, Urine Yellow (P-Yellow); Glucose Qualitative, Urine Neg (Neg); Ketones, Urine Neg (Neg); Leukocyte Esterase, Urine Neg (Neg); Nitrite, Urine Neg (Neg); Protein, Urine Neg (Neg); Specific Gravity, Urine 1.005 (1.003-1.022); Urobilinogen, Urine NORM (Normal)
[2023-02-20 13:15] LABS: Albumin, Blood 3.9 g/dL (3.4-5.0); Albumin/Globulin Ratio 1.1 (0.8-1.8); Bilirubin, Total 1.3 mg/dL (0.1-1.0); Bun/Creatinine Ratio 10.6 (12.0-20.0); Calcium, Blood 9.1 mg/dL (8.5-10.1); Creatinine, Blood 1.04 mg/dL (0.60-1.20); Globulin, Blood 3.6 g/dL (2.2-4.0); Magnesium, Blood 2.1 mg/dL (1.6-2.4); Potassium, Blood 4.5 mmol/L (3.5-5.5); Total Protein, Blood 7.5 g/dL (6.4-8.2)
== END 2023-02-20 15:42 | disposition home or self-care (01) ==
LOC: ER 12:21
PROVIDERS: Physician Assistant
DX: R51.9 Headache, unspecified (principal); L25.9 Unspecified contact dermatitis, unspecified cause; I12.9 Hypertensive chronic kidney disease with stage 1 through stage 4 chronic kidney disease, or unspecified chronic kidney disease; N18.9 Chronic kidney disease, unspecified; G40.909 Epilepsy, unspecified, not intractable, without status epilepticus
CPT/HCPCS: 80053; 81003; 83735; 85025; 96374; 99282-25; J1885